=== PATIENT | male | born 1940 | race Caucasian/White ===

== ENCOUNTER 2018-06-10 10:15 | Inpatient (IN) | payer MEDICAID, OTHER ==
--- NOTE | 2018-06-30 22:14 | GHP ---
DATE OF ADMISSION: 07/01/2018 NEUROSURGERY HISTORY AND PHYSICAL CHIEF COMPLAINT: Leg pain and leg weakness. HISTORY OF PRESENT ILLNESS: This is a 77-year-old male who presented with a few minutes of painless weakness in the legs. He presented to our clinic a few months ago. He describes this mostly as a feeling of fatigue when walking. He says that biking is okay and he does not get the same sensation. He does not have any aching or burning, or other signs of radiculopathy. He does occasionally get some numbness and tingling in both of his feet. He does have a history of L4-5 laminectomy in 1985. He had a recent MRI which does show moderate to severe central canal stenosis at L2-3 and L3-4 as well as L1-2. He has had PT and has also seen Neurology, Dr. Solis, for neuropathy, and takes no medication for this; however, he still does not have great relief. He says that his feet frequently feel cold. When we discussed in the clinic the possibility of both peripheral neuropathy and lumbar stenosis contributing to his symptoms, and given his MRI findings, he ultimately decided he would like to proceed with surgery in the form of a minimally invasive L2-3, L3-4 decompression. 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 At that time his films were reviewed again by Dr. Ibanez, and this did show also severe central canal stenosis at L1-2. The surgical plan was discussed to possibly add on the L1-2 level as well as doing a laminectomy, as both levels below would likely lead to further degeneration, clearly of the level above. He then was rescheduled for surgery for July 01, 2018. He is not currently taking any blood thinning medications. He was taking aspirin, but understands that he needs to stop this medication approximately 7 days before surgery. He denies any other fever, chills, or any other recent hospitalizations or illnesses. He denies any loss of bowel or bladder control or saddle anesthesia. REVIEW OF SYSTEMS: Positive for wearing glasses, hearing loss, emphysema, headaches, leg weakness, right and left, and neck pain. PAST MEDICAL HISTORY: emphysema, neuropathy, neck pain HOME MEDICATIONS: Please see med reconciliation in EMR SOCIAL HISTORY: prior smoker, lives with roommate ALLERGIES:NKDA PHYSICAL EXAMINATION: VITAL SIGNS: Please see the current vital signs in the electronic medical record. CONSTITUTION: The patient is a well-developed, well -nourished male in no acute distress. NEUROLOGIC: His speech is clear and fluent. Cranial nerves 2-12 are grossly intact. Strength is full in all his extremities. Sensation is normal, except for subjective numbness in both legs below the knees. His deep tendon reflexes are normal in the biceps, brachial radialis, patellar, and Achilles. His gait is normal. MUSCULOSKELETAL: The patient does have marked atrophy of the left tibialis anterior and gastroc, with hyperpigmentation in left anterior foley and calf. RESPIRATORY: Patient has normal work of breathing. ABDOMEN: No guarding. EXTREMITIES: Pulses are intact bilaterally. CARDIOVASCULAR: Patient is well perfused. LABORATORY DATA: There are no current lab results to review. DIAGNOSTIC IMAGING: His MRI of the lumbar spine was reviewed and just shows severe stenosis at L1-2, L2-3, L3-4 centrally. ASSESSMENT AND PLAN: The patient is a 77-year-old man who describes some fatigue and weakness in his lower extremities when he walks longer distances. He stated that he could walk about a half a mile with a cane before he becomes fatigued. He does have severe lumbar stenosis at L1-2, L2-3, and L3-4, and his EMG shows evidence of both neuropathy as well as some acute denervation of the left tibialis anterior and left gastroc. His ABIs were reviewed to rule out vascular insufficiency, and these were normal. I reviewed his films with Dr. Ibanez as well as Dr. Worrell in the office, who felt that due to his symptoms and MRI findings and EMG findings that a lumbar decompression in the form of an L1-2, L2-3, and L3-4 laminectomy for decompression may have a great chance of helping him with his symptoms. Originally his surgical plan was just to include L2-3 and L3-4; however, due to recent review of his MRI and the severe stenosis of L1-2, we will speak with the patient about adding on this level. Also, due to the amount of central canal stenosis, it is felt that an open approach will need to be performed instead of a minimally invasive approach in order to adequately decompress the canal. All risks, benefits, and alternatives were discussed with the patient and the patient would like to proceed with surgery. The patient will also continue to follow. Dr. Solis in terms of his neuropathy to maximize any medical treatment as well. /[id number]/MODL MTDD
[2018-07-01] MEDS ORDERED: ceFAZolin 2 GM/DEXTROSE 100 ML IV ONE (05:38)
[2018-07-01] MEDS ORDERED: GABAPENTIN 300 MG CAP PO ONE (05:38)
[2018-07-01] MEDS ORDERED: ACETAMINOPHEN 500 MG TAB PO ONE (05:38)
[2018-07-01] MEDS ORDERED: LR 1,000 ML IV ONE (05:44)
[2018-07-01] MEDS ORDERED: LIDOCAINE 1% 2 ML INJ ID PRN (05:44)
[2018-07-01 06:54] LABS: PLATELET COUNT 213 10^3/uL (150-400)
[2018-07-01] MEDS ORDERED: THROMBIN (BOVINE) 5,000 UNIT VIAL TP ONE (06:54)
[2018-07-01] MEDS ORDERED: BUPIVACAINE/EPI 0.25% 30 ML SDV ONE (06:54)
[2018-07-01] MEDS ORDERED: CHLORHEXIDINE GLUC HIBICLENS 118 ML BTL TP ONE (06:55)
[2018-07-01] MEDS ORDERED: BACITRACIN 50,000 UNITS/10 ML SYR IRR ONE (06:55)
[2018-07-01] MEDS ORDERED: REMIFENTANIL HCL 1 MG VIAL ONE (07:04)
[2018-07-01] MEDS ORDERED: fentaNYL 100 MCG/2 ML INJ ONE ×2 (07:04→10:24)
[2018-07-01] MEDS ORDERED: PROPOFOL/EMULSION 500 MG/50 ML BOTTLE IV ONE (07:05)
--- NOTE | 2018-07-01 07:08 | PDANEPAE ---
ANE Past Medical History - Cardiovascular History Hx Hypertension: No Hx Arrhythmias: No Hx Chest Pain: No Hx Coronary Artery / Peripheral Vascular Disease: No Hx CHF / Valvular Disease: No Hx Palpitations: Yes Cardiovascular History Comment: INTERMITTENT PVC'S - Pulmonary History Hx COPD: Yes Hx Asthma/Reactive Airway Disease: No Hx Recent Upper Respiratory Infection: No Hx Oxygen in Use at Home: No Hx Sleep Apnea: No Sleep Apnea Screening Result - Last Documented: Negative Pulmonary History Comment: START OF EMPHYZEMA. SCAR TISSUES CENTER OF RT LUNG FROM PREV INFECTION POST DENTAL WORK - Neurologic History Hx Cerebrovascular Accident: No Hx Seizures: No Hx Dementia: No - Endocrine History Hx Diabetes: No - Renal History Hx Renal Disorders: No - Liver History Hx Hepatic Disorders: No - Neurological & Psychiatric Hx Hx Neurological and Psychiatric Disorders: No - Cancer History Hx Cancer: Yes Cancer History Comment: SKIN-MOH'S PROCEDURES FOR BASAL CELL - Congenital Disorder History Hx Congenital Disorders: No - GI History Hx Gastrointestinal Disorders: Yes Gastrointestinal History Comment: HX OF COLON POLYPS - Other Health History Other Health History: SPINAL STENOSIS. LT FOOT DROP. NEUROPATHY. GLAUCOMA/ CATARACTS. MISSING TEETH - Chronic Pain History Chronic Pain: Yes (SPINAL STENOSIS) - Surgical History Prior Surgeries: VICKEY TOTAL HIP. COLONOSCOPY. LAMINECTOMY. TONSILLECTOMY. APPENDECTOMY/VOLVULUS ANE Review of Systems Review of Systems: - Exercise capacity METS (RN): 5 METS ANE Patient History - Allergies Allergies/Adverse Reactions: No Known Allergies Allergy (Verified 06/11/18 11:31) - Home Medications Home medications: home medication list seen and reviewed Home Medications: Acetaminophen [Tylenol ES 500 mg (*)] 1,000 mg PO HS 06/11/18 [Last Taken Unknown] Aspirin [Aspirin 81mg (*)] 81 mg PO DAILY 06/11/18 [Last Taken Unknown] Brimonidine 0.1% [ALPHAGAN P 0.1% (*)] 1 drops EACHEYE BID 06/11/18 [Last Taken Unknown] Brinzolamide 1% [Azopt 1%] 1 drops EACHEYE TID 06/11/18 [Last Taken Unknown] Efinaconazole [Jublia] 1 alexandra TP DAILY 06/11/18 [Last Taken Unknown] Herbals/Supplements -Info Only 1 ea PO DAILY 06/11/18 [Last Taken Unknown] Latanoprost 0.005% [Xalatan 0.005% (*)] 1 drops EACHEYE HS 06/11/18 [Last Taken Unknown] Multivitamins [Multivitamin (*)] 1 each PO DAILY 06/11/18 [Last Taken Unknown] [place]-3 Fatty Acids [Fish Oil 1000 mg (*)] 1,000 mg PO DAILY 06/11/18 [Last Taken Unknown] - NPO status NPO Since - Liquids (Date): 06/30/18 NPO Since - Liquids (Time): 21:30 NPO Since - Solids (Date): 06/30/18 NPO Since - Solids (Time): 21:30 - Smoking Hx Smoking Status: Former smoker ANE Labs/Vital Signs - Labs Result Diagrams: 07/01/18 06:35 07/01/18 06:35 - Vital Signs Vital Signs: reviewed preoperatively; see RN documention for details Blood Pressure: 141/67 Heart Rate: 58 Respiratory Rate: 9 O2 Sat (%): 95 Height: 172.72 cm Weight: 72.575 kg ANE Physical Exam - Airway Neck exam: FROM Mallampati Score: Class 2 Mouth exam: poor dentition - Pulmonary Pulmonary: clear to auscultation - ASA Status ASA Status: II ANE Anesthesia Plan Anesthesia Plan: general endotracheal anesthesia
[2018-07-01] MEDS ORDERED: PROPOFOL 200 MG/20 ML VIAL ONE (07:22)
[2018-07-01] MEDS ORDERED: AVITENE POWDER 1 GM JAR TP ONE (08:00)
[2018-07-01] MEDS ORDERED: SURGIFLO MATRIX KIT WITH THROMBIN 8 ML TP ONE (08:01)
[2018-07-01] MEDS ORDERED: ACETAMINOPHEN 500 MG TAB PO PRN (09:33)
[2018-07-01] MEDS ORDERED: LR 500 ML IV PRN (09:33)
[2018-07-01] MEDS ORDERED: DIAZEPAM 5 MG/ML 1 ML SYR IVP PRN (09:33)
[2018-07-01] MEDS ORDERED: DEXAMETHASONE 4 MG/ML VIAL IVP PRN (09:33)
[2018-07-01] MEDS ORDERED: ONDANSETRON 4 MG/2 ML VIAL IVP PRN ×2 (09:33→10:06)
[2018-07-01] MEDS ORDERED: LABETALOL HCL 5 MG/ML 20 ML MDV IVP PRN (09:33)
[2018-07-01] MEDS ORDERED: fentaNYL 100 MCG/2 ML INJ IVP PRN (09:33)
[2018-07-01] MEDS ORDERED: METOCLOPRAMIDE 10 MG/2 ML VIAL IVP PRN (09:33)
[2018-07-01] MEDS ORDERED: ALBUTEROL 3 ML DEYVIAL IH PRN (09:33)
[2018-07-01] MEDS ORDERED: PHENYLEPHRINE HCL 100 MCG/ML SYR IVP PRN (09:33)
[2018-07-01] MEDS ORDERED: PROMETHAZINE HCL 25 MG/ML INJ IVP PRN (09:33)
[2018-07-01] MEDS ORDERED: NALOXONE HCL 0.4 MG/ML INJ IVP PRN (09:33)
[2018-07-01] MEDS ORDERED: MEPERIDINE 25 MG/0.5 ML AMP IVP PRN (09:33)
[2018-07-01] MEDS ORDERED: METHOCARBAMOL 750 MG TAB PO PRN (10:06)
[2018-07-01] MEDS ORDERED: BISACODYL 10 MG SUPP PR PRN (10:06)
[2018-07-01] MEDS ORDERED: oxyCODONE IR 5 MG TAB PO PRN (10:06)
[2018-07-01] MEDS ORDERED: diphenhydrAMINE 25 MG CAP PO PRN (10:06)
[2018-07-01] MEDS ORDERED: MAGNESIUM HYDROXIDE 30 ML UDCUP PO PRN (10:06)
[2018-07-01] MEDS ORDERED: LACTULOSE 20 GM/30 ML UDCUP PO PRN (10:06)
[2018-07-01] MEDS ORDERED: POLYETHYLENE GLYCOL 3350 17 GM PKT PO PRN (10:06)
[2018-07-01] MEDS ORDERED: ONDANSETRON DISINTEGRATING 4 MG TAB PO PRN (10:06)
[2018-07-01] MEDS ORDERED: NS 1,000 ML IV SCH (10:15)
--- NOTE | 2018-07-01 10:16 | POSTOPPROG ---
Post Op Note Date of Operation: 07/01/18 Surgeon: Miguel Ibanez [employer] Administrator: Essence Mora Anesthesia: GET(General Endotracheal) Pre-op Diagnosis: Lumbar stenosis with neurogenic claudicatio Post-op Diagnosis: same Procedure: L1-4 lumbar decompression Inf/Abcess present in the surg proc area at time of surgery?: No Depth: Organ Space EBL: 75mL Complications: None observed Drains: [place] (To full suction) SOAP Progress Note Assessment/Plan: Assessment: Plan: 07/01/18 10:13 S: Patient in PACU. Has expected incisional discomfort. O: NAD, VSS Following commands, speech fluent GUAMAN X4 RLE 5/5 LLE 55 except left foot weaker 4/5 dorsiflexion as was present preop SILT- LLE decreased sensation from knee down as was preop A: 77 yo male sp L1-4 lumbar decompression for lumbar stenosis with neurogenic claudication P: -Admit to med/surg -Optimize pain management -PT/OT -BEVERLEY X 1 to full suction -Advance diet as tolerated -No bending, lifting, twisting more than 5-10 pounds -DVT: TEDS, SCDs Lovenox on POD#1 -Ok to resume ASA on discharge -Dispo planning- Hopeful for DC 1/3 vs 1/ -Patient seen by Dr. Ibanez in PACU as well Objective: Vital Signs Temp Pulse Resp BP Pulse Ox 36.3 C 58 L 9 L 141/67 H 95 07/01/18 06:41 07/01/18 07:08 07/01/18 07:08 07/01/18 07:08 07/01/18 07:08 Laboratory Results 07/01/18 06:35 07/01/18 06:35
[2018-07-01] MEDS ORDERED: HYDROCODONE/APAP 5/325 TAB PO PRN (10:17)
--- NOTE | 2018-07-01 10:21 | GOP ---
DATE OF OPERATION: 07/01/2018 SURGEON: Miguel Ibanez MD NEUROSURGEON: Miguel Ibanez MD CFO: Essence Jacinto PA-C. ANESTHESIA: General endotracheal. PREOPERATIVE DIAGNOSIS: Symptomatic lumbar stenosis with neurogenic claudication. POSTOPERATIVE DIAGNOSIS: Symptomatic lumbar stenosis with neurogenic claudication. PROCEDURE PERFORMED: 1. L1, L2, and L3 complete laminectomies for decompression of cauda equina with medial facetectomies . 2. Use of Stealth/O-Arm stereotactic navigation for localization of levels. 3. Use of the operative microscope. 4. Intraoperative neurophysiologic monitoring, including somatosensory evoked potentials and EMG. FINDINGS: Successful lumbar decompression. SPECIMENS: There were no specimens. ESTIMATED BLOOD LOSS: Blood loss was 75 cc. INDICATIONS: Brief clinical history: The patient is a 77-year-old man who presents with bilateral l ower extremity numbness and claudication. MRI of the lumbar spine shows multilevel severe degenerati ve facet disease with ligamentous hypertrophy and severe stenosis at L1-2, L2-3, and L3-4. He has le ss severe stenosis at 4-5 and 5-1. Given the narrowness of his canal and the severity of the stenosi s, I elected to do this open as opposed to minimally invasive. DESCRIPTION OF PROCEDURE: After informed consent was obtained from the patient, the patient was brou ght to the operating room, and a formal time-out was performed, identifying the patient by name, [facility] record number, and date of . Preoperative antibiotics were given. The endotracheal tube wa s placed, and general endotracheal anesthesia was smoothly induced. All appropriate leads were place d for intraoperative neurophysiologic monitoring, including somatosensory evoked potentials and EMG. The patient was then turned to the prone position on the Bay table, and all appropriate pressure points were padded and checked. At this point, the lumbar region was prepped and draped in the norm al sterile fashion. A stab incision was made over the right iliac crest, and then a percutaneous monty igation pin was placed. The patient was then draped, and an O-arm spin was obtained, showing the rel evant anatomy from T12 to the sacrum. Navigation was then used to localize the levels and plan the i ncision from the L1-2 down to L3-4 disk spaces. 10 cc of 0.25% Marcaine with epinephrine was infiltr ated into the skin for hemostasis. The skin incision was then made using a 10 blade, and the subcuta neous tissues were dissected using monopolar electrocautery. The fascia was opened in the midline, a nd the paraspinous muscles were taken down from the spinous processes and lamina of L1, L2, and L3. At this point in time, the navigation was used to confirm the appropriate level. The Leksell rongeur was used to remove the spinous processes of L1, L2, and L3, and a high-speed drill was used to drill troughs laterally over the lateral recess and the lateral gutter from L1 to L3 bilaterally. The ope rative microscope was then brought on the field, and the remainder of the procedure was performed und er high-power magnification. The high-speed drill was used a bit more to drill down slightly deeper through the medial edge of the facet, getting a wide decompression. In the midline, the ligament was visible. This was opened, and the dura was visualized. Kerrison punch was then used to perform com plete laminectomies at L1, L2, and L3, and the yellow ligament was carefully dissected away from the dura and removed. At L2-3 and L3-4, this was quite compressive and very adherent to the dura, but ca reful dissection allowed us to separate the yellow ligament, and it was completely removed. This all owed for a wide decompression of the thecal sac. We were able to palpate into the bilateral lateral recesses and had good decompression of the ligamentum flavum from pedicle to pedicle. Foraminotomies were performed with the Kerrison punches to be sure that all the nerve roots were completely free. At this point, the wound was copiously irrigated using bacitracin irrigation. A small piece of Surgi romy was placed in the lateral gutter bilaterally for hemostasis. A 10-Italian BEVERLEY drain was then place d in the subfascial space, and the fascia was closed in the midline using interrupted 0-Vicryls. The deep dermis was closed using interrupted 2-0 Vicryls, and the skin was closed using Steri-Strips. T he percutaneous pin was removed, and this was also closed with a Steri-Strip. The patient was awaken ed in the operating room, where he was extubated and was transferred to the PACU in stable condition. There were no operative complications. I was scrubbed and present for the entire procedure. All s ponge and needle counts were correct at the end of the case. FLUIDS AND URINE OUTPUT: Per the anesthesia record. DRAINS: Subfascial BEVERLEY. /[id number]/MODL
[2018-07-01] MEDS ORDERED: HYDROmorphONE/DILAUDID 2 MG/ML INJ ONE (10:24)
[2018-07-01] MEDS: HYDROmorphONE/DILAUDID 2 MG/ML INJ IVP PRN ×2 (10:25→10:36)
--- NOTE | 2018-07-01 11:50 | POSTANESTH ---
Post Anesthetic Evaluation Cardiovascular Status: Normal, Stable Respiratory Status: Normal, Stable Level of Consciousness/Mental Status: Can Participate in Eval Pain Control: Adequate, Prn Tx Ordered Nausea/Vomiting Control: Adequate, Prn Tx Ordered Complications Possibly Related to Anesthesia: None Noted
--- NOTE | 2018-07-01 13:56 | PDMN ---
Medical Necessity Medical necessity: [facility] [place] [place] S810 A-1day: Lumbar Diskectomy, Foraminotomy, or Laminotomy 77 yo s/p open posterior lumbar decompression L1/2, L2/3, L3/4. Meets [facility] [place] [facility] IP criteria for multilevel procedure, open surgery, and advanced age, anticipate>2MN for monitoring and tx.
[2018-07-01] MEDS: ACETAMINOPHEN 325 MG TAB PO PRN ×2 (14:38→20:59)
[2018-07-01] MEDS: ceFAZolin 2 GM/DEXTROSE 100 ML IV SCH ×2 (14:42→23:10)
[2018-07-01] MEDS: Brinzolamide 1% 10 ml OPHT.BTL EACHEYE SCH ×2 (16:46→23:10)
[2018-07-01] MEDS: SENNOSIDES/DOCUSATE SODIUM TAB PO SCH (20:58)
[2018-07-01] MEDS ORDERED: LATANOPROST 0.005% 2.5 ML OPHT DROPS EACHEYE SCH (21:00)
[2018-07-01] MEDS: BRIMONIDINE 0.1% 5 ML OPHT.BTL EACHEYE SCH (21:02)
[2018-07-02] MEDS ORDERED: ENOXAPARIN 40 MG/0.4 ML SYR SC SCH (09:00)
[2018-07-02] MEDS ORDERED: EFINACONAZOLE TP SCH (09:00)
[2018-07-02] MEDS ORDERED: FAMOTIDINE 20 MG TAB PO SCH (10:00)
--- NOTE | 2018-07-02 10:04 | NEUSURGPN ---
Assessment/Plan: Assessment: Plan: 07/01/18 10:13 S: Doing well. Has expected incisional pain that is being well managed with medications. States legs feel about the same as prior to surgery but has not been up to walk much yet. Has some heart burn per RN. O: NAD, VSS Following commands, speech fluent RLE 5/5 LLE 5/5 except left foot weaker 4/5 dorsiflexion as was present preop SILT- LLE decreased sensation from knee down as was preop A: 77 yo male sp L1-4 lumbar decompression for lumbar stenosis with neurogenic claudication P: -Neuro: Doing well overall -Optimize pain management -PT/OT -BEVERLEY X 1 to full suction- to be removed today -Advance diet as tolerated -No bending, lifting, twisting more than 5-10 pounds -DVT: TEDS, SCDs Lovenox on POD#1 -Ok to resume ASA on discharge -Dispo planning- Will see how PT goes today, if doing well and pain controlled could go home today, otherwise tomorrow -Patient seen by Dr. Ibanez as well - Physician Discussed Patient with Dr.: Ibanez Neurosurgery Physical Exam - Vitals, I&O, Labs I and O 07/01/18 07/02/18 07/03/18 05:59 05:59 05:59 Intake Total 2300 Output Total 1120 300 Balance 1180 -300 Weight 72.575 kg Intake: Oral (ml) 1700 IV Intake (ml) 600 Output: Urine (ml) 800 300 Toilet 300 Urinal 800 Estimated Blood Loss (ml) 30 BEVERLEY Drain Output (ml) 290 Back [place] 290 Other: Number of Voids Toilet 1 1 Urinal 1 Vital Signs Temp Pulse Resp BP Pulse Ox 36.6 C 63 16 119/59 L 93 07/02/18 08:00 07/02/18 08:00 07/02/18 08:00 07/02/18 08:00 07/02/18 08:00 Laboratory Results 07/01/18 06:35 07/01/18 06:35 ICD10 Worksheet Patient Problems: Problems Problem Status Onset Lumbar stenosis with neurogenic claudication Acute - ICD10 Problem Qualifiers (1) Lumbar stenosis with neurogenic claudication
[2018-07-02] MEDS: ACETAMINOPHEN 325 MG TAB PO PRN ×2 (10:10→16:15)
[2018-07-02] MEDS: SENNOSIDES/DOCUSATE SODIUM TAB PO SCH (10:10)
[2018-07-02] MEDS: Brinzolamide 1% 10 ml OPHT.BTL EACHEYE SCH (10:11)
[2018-07-02] MEDS: BRIMONIDINE 0.1% 5 ML OPHT.BTL EACHEYE SCH (10:11)
[2018-07-02 11:27] VITALS: BP 114/55
--- NOTE | 2018-07-02 14:39 | ASMTCMCOM ---
CM Note CM Note Notes: Patient is POD #1 L1-L4 lumbar decompression. He is normally independent. Lives w a roommate. Has a walker and cane at home. PT/OT have cleared him for home. CM available if needs change. Date Signed: 07/02/2018 02:38 PM Electronically Signed By:Nancy Esparza RN
== END 2018-07-02 16:29 | disposition home or self-care (01) | DRG 310 ==
LOC: F3E 07-01 05:08 → OBSVTOIN 07-01 10:11 → F3N 07-01 11:00
PROVIDERS: ADMIT Neurological Surgery; ATTEND Neurological Surgery
PROC: 00NY0ZZ Release Lumbar Spinal Cord, Open Approach (ICD-10-PCS; principal; 2018-07-01 07:15)
PROC: 8E0WXBZ Computer Assisted Procedure of Trunk Region (ICD-10-PCS; principal; 2018-07-01 07:15)
PROC: 4A1004G Monitoring of Central Nervous Electrical Activity, Intraoperative, Open Approach (ICD-10-PCS; principal; 2018-07-01 07:15)
PROC: 01NB0ZZ Release Lumbar Nerve, Open Approach (ICD-10-PCS; principal; 2018-07-01 07:15)
DX: M48.062 Spinal stenosis, lumbar region with neurogenic claudication (principal); H26.9 Unspecified cataract; H40.9 Unspecified glaucoma; Z85.828 Personal history of other malignant neoplasm of skin; Z96.643 Presence of artificial hip joint, bilateral; Z87.891 Personal history of nicotine dependence
CPT/HCPCS: 97161-GP; 97165-GO; J0690; J1170; J1650; J2704; J3010

== ENCOUNTER 2018-08-01 11:34 | Emergency (ER) | payer OTHER, MEDICAID ==
--- NOTE | 2018-08-01 11:51 | EDPHY ---
H & P Stated Complaint: HTN/ IRREG HR 2 DAYS Time Seen by Provider: 08/01/18 11:50 HPI/ROS: CHIEF COMPLAINT: Asymptomatic hypertension HISTORY OF PRESENT ILLNESS: The patient presents to the ED with 2 days of asymptomatic hypertension. He reports he has been documenting blood pressures in the 140-160 range. He denies any current headache, chest pain or shortness of breath. The patient has experienced some intermittent palpitations. The patient does have a history of COPD. He has a history of a back surgery. He denies any prior history of hypertension. The patient denies fever, cough or congestion. He denies any exertional chest pain. He denies any additional acute complaints. REVIEW OF SYSTEMS: A comprehensive 10 point review of systems is otherwise negative aside from elements mentioned in the history of present illness. Source: Patient - Personal History Current Tetanus Diphtheria and Acellular Pertussis (TDAP): No - Medical/Surgical History Hx Asthma: No Hx Chronic Respiratory Disease: Yes Hx Diabetes: No Hx Cardiac Disease: No Hx Renal Disease: No Hx Cirrhosis: No Hx Alcoholism: No Hx HIV/AIDS: No Hx Splenectomy or Spleen Trauma: No Other PMH: L4-5 Lami 1985, LE neuropathy, emphysema, COPD, Bilat DAVID, glaucoma - Social History Smoking Status: Former smoker - Physical Exam Exam: General Appearance: Alert, no distress Eyes: Pupils equal and round no pallor or injection ENT, Mouth: Mucous membranes moist Respiratory: There are no retractions, lungs are clear to auscultation Cardiovascular: Regular rate and rhythm Gastrointestinal: Abdomen is soft and nontender, no masses, bowel sounds normal Neurological: A&O, normal motor function, normal sensory exam, normal cranial nerves Skin: Warm and dry, no rashes Musculoskeletal: Neck is supple nontender Extremities: symmetrical, full range of motion Constitutional: Initial Vital Signs Temperature (C) 36.8 C 08/01/18 11:40 Heart Rate 65 08/01/18 11:40 Respiratory Rate 18 08/01/18 11:40 Blood Pressure 181/79 H 08/01/18 11:40 O2 Sat (%) 96 08/01/18 11:40 O2 Delivery Mode Room Air Allergies/Adverse Reactions: No Known Allergies Allergy (Verified 08/01/18 11:38) Home Medications: Medication Instructions Recorded Aspirin [Aspirin 81mg (*)] 81 mg PO DAILY 06/11/18 Brimonidine 0.1% [ALPHAGAN P 0.1% 1 drops EACHEYE BID 06/11/18 (*)] Brinzolamide 1% [AZOPT 1% (RX)] 1 drops EACHEYE TID 06/11/18 Efinaconazole [Jublia] 1 alexandra TP DAILY 06/11/18 Latanoprost 0.005% [Xalatan 0.005% 1 drops EACHEYE HS 06/11/18 (*)] Multivitamins [Multivitamin (*)] 1 each PO DAILY 06/11/18 [place]-3 Fatty Acids [Fish Oil 1000 1,000 mg PO DAILY 06/11/18 mg (*)] Methocarbamol [Robaxin 750 mg (*)] 750 mg PO QID PRN #60 tab 07/01/18 Acetaminophen [Tylenol 325mg (*)] 325 - 650 mg PO Q4HRS PRN tab 07/02/18 Medical Decision Making - Diagnostics EKG Interpretation: EKG: Complete interpretation has been separately recorded in the [employer] archive. Summary impression: Sinus rhythm, rate 60, nonspecific ST T wave changes noted ED Course/Re-evaluation: Patient presents to the ED with asymptomatic hypertension. The patient has a blood pressure log which demonstrates readings in the 160 range fairly consistently over the past several days. Patient's EKG demonstrates no evidence of ischemia. Patient is nontoxic and well-appearing. The patient's troponin is normal. The patient is noted to have chronic hyponatremia. I will ask the patient to schedule a follow-up appointment with his primary care provider for a blood pressure recheck within the next 3-4 days. The patient is advised to continue to check his blood pressure once in the morning and night. Patient is advised to return to the ED for severe headache, chest pain, shortness of breath or acute neurologic symptoms. - Data Points Laboratory Results: Laboratory Results 08/01/18 12:00 08/01/18 12:00 08/01/18 08/01/18 08/01/18 12:05 12:00 12:00 WBC 4.05 10^3/uL 10^3/uL (3.80-9.50) RBC 3.94 10^6/uL L 10^6/uL (4.40-6.38) Hgb 12.5 g/dL L g/dL (13.7-17.5) Hct 35.8 % L % (40.0-51.0) MCV 90.9 fL fL (81.5-99.8) MCH 31.7 pg pg (27.9-34.1) MCHC 34.9 g/dL g/dL (32.4-36.7) RDW 12.5 % % (11.5-15.2) Plt Count 222 10^3/uL 10^3/uL (150-400) MPV 8.3 fL L fL (8.7-11.7) Neut % (Auto) 65.2 % % (39.3-74.2) Lymph % (Auto) 22.0 % % (15.0-45.0) [place] % (Auto) 10.6 % % (4.5-13.0) Eos % (Auto) 1.5 % % (0.6-7.6) Baso % (Auto) 0.2 % L % (0.3-1.7) Nucleat RBC Rel Count 0.0 % % (0.0-0.2) Absolute Neuts (auto) 2.64 10^3/uL 10^3/uL (1.70-6.50) Absolute Lymphs (auto) 0.89 10^3/uL L 10^3/uL (1.00-3.00) Absolute Monos (auto) 0.43 10^3/uL 10^3/uL (0.30-0.80) Absolute Eos (auto) 0.06 10^3/uL 10^3/uL (0.03-0.40) Absolute Basos (auto) 0.01 10^3/uL L 10^3/uL (0.02-0.10) Absolute Nucleated RBC 0.00 10^3/uL 10^3/uL (0-0.01) Immature Gran % 0.5 % % (0.0-1.1) Immature Gran # 0.02 10^3/uL 10^3/uL (0.00-0.10) Sodium 127 mEq/L L mEq/L (135-145) Potassium 4.5 mEq/L mEq/L (3.5-5.2) Chloride 95 mEq/L L mEq/L (97-110) Carbon Dioxide 23 mEq/l mEq/l (22-31) Anion Gap 9 mEq/L mEq/L (6-14) BUN 17 mg/dL mg/dL (7-23) Creatinine 0.6 mg/dL L mg/dL (0.7-1.3) Estimated GFR > 60 Glucose 102 mg/dL H mg/dL (70-100) Calcium 9.1 mg/dL mg/dL (8.5-10.4) POC Troponin I 0.00 ng/mL ng/mL (0.00-0.08) Point of Care Test Results: Chemistry 08/01/18 12:05 POC Troponin I 0.00 ng/mL ng/mL (0.00-0.08) Departure - Departure Disposition: Home, Routine, Self-Care Clinical Impression: Hypertension Condition: Good Instructions: Hypertension (ED) Additional Instructions: 1. Please follow-up with your primary care provider this week for a blood pressure recheck. 2. I do recommend keeping a log of your blood pressure once in the morning and once at night until you see your PCP. 3. You may get started on medication for control of your hypertension if you continue to have elevated blood pressure. This should be coordinated with your primary care provider. 4. Return to the ED for severe chest pain, shortness of breath, numbness or weakness. Referrals: Selena Zhao, PAC [Primary Care Provider] - As per Instructions
[2018-08-01 12:14] LABS: PLATELET COUNT 222 10^3/uL (150-400)
[2018-08-01 13:07] VITALS: BP 177/107
--- NOTE | 2018-08-01 13:56 | CPEKG ---
Test Reason : OPEN Blood Pressure : / mmHG Vent. Rate : 060 BPM Atrial Rate : 060 BPM P-R Int : 169 ms QRS Dur : 099 ms QT Int : 416 ms P-R-T Axes : 071 066 066 degrees QTc Int : 416 ms Sinus rhythm Probable left atrial enlargement Borderline ST elevation, anterior leads Confirmed by Mukul Lucio ([id number]) on 08/01/2018 1:55:19 PM Referred By: Mukul Lucio Confirmed By:Mukul Lucio
== END 2018-08-01 13:06 | disposition home or self-care (01) ==
DX: I10 Essential (primary) hypertension (principal); J44.9 Chronic obstructive pulmonary disease, unspecified; E87.1 Hypo-osmolality and hyponatremia; Z87.891 Personal history of nicotine dependence; Z96.643 Presence of artificial hip joint, bilateral
CPT/HCPCS: 84484-ER